=== PATIENT | female | born 1940 | race Caucasian/White ===

== ENCOUNTER 2017-01-22 08:46 | Outpatient (CLI) | payer MEDICARE, OTHER ==
[2014-01-13 09:57] VITALS: BMI 24.7
[~2017-01-22 08:46] MED LIST: ASPIRIN EC81 M1 PO; CALCIUM 500 + D1 TAB PO; CENTRUM COMPLE1 EACH PO; DIOVAN HCT 320/1 TA2; LIPITOR10 MG PO; PRILOSEC20 MG PO; SYNTHROID75 MCG PO
== END 2017-01-22 09:23 ==
LOC: D.MAMMO 08:46
DX: Z12.31 Encounter for screening mammogram for malignant neoplasm of breast (principal)

== ENCOUNTER 2018-08-15 08:00 | Outpatient (CLI) | payer MEDICARE, OTHER ==
[2014-01-13 09:57] VITALS: BMI 24.7
== END 2018-08-15 09:00 | disposition home or self-care (01) ==
LOC: D.MAMMO 08:00
DX: Z12.31 Encounter for screening mammogram for malignant neoplasm of breast (principal)

== ENCOUNTER 2019-08-19 08:00 | Outpatient (CLI) | payer MEDICARE, OTHER ==
[2014-01-13 09:57] VITALS: BMI 24.7
== END 2019-08-19 23:59 | disposition home or self-care (01) ==
LOC: D.MAMMO 08:00
PROVIDERS: ATTEND Family Medicine
DX: Z12.31 Encounter for screening mammogram for malignant neoplasm of breast (principal)

== ENCOUNTER 2019-12-18 09:00 | Outpatient (CLI) | payer MEDICARE, OTHER ==
[2014-01-13 09:57] VITALS: BMI 24.7
== END 2019-12-18 10:00 | disposition home or self-care (01) ==
LOC: D.MAMMO 09:00
PROVIDERS: ATTEND Family Medicine
DX: R92.8 Other abnormal and inconclusive findings on diagnostic imaging of breast (principal)

== ENCOUNTER → 2020-03-28 12:23 | Outpatient (CLI) | payer MEDICARE, OTHER ==
[2014-01-13 09:57] VITALS: BMI 24.7
== END | disposition home or self-care (01) ==
LOC: D.HCCECHO 12:23
PROVIDERS: ATTEND Internal Medicine Cardiovascular Disease
DX: H53.9 Unspecified visual disturbance (principal); R55 Syncope and collapse; I10 Essential (primary) hypertension

== ENCOUNTER 2021-01-18 10:45 | Outpatient (CLI) | payer MEDICARE, OTHER ==
[2014-01-13 09:57] VITALS: BMI 24.7
== END 2021-01-18 23:59 | disposition home or self-care (01) ==
LOC: D.MAMMO 10:45
PROVIDERS: ATTEND Family Medicine
DX: Z12.31 Encounter for screening mammogram for malignant neoplasm of breast (principal)